=== PATIENT | female | born 1985 | race Caucasian/White ===

== ENCOUNTER 2023-03-25 12:33 | Outpatient (CLI) | payer OTHER, SELFPAY ==
--- NOTE | 2023-03-25 13:10 | NEURO_ITS ---
Impression: # Complains of numbness of right hand. # Right moderate Carpal Tunnel Syndrome. # Needle/EMG exam not requested. Nerve Conduction Studies Anti Sensory Summary Table Stim Site NR Peak (ms) P-T Amp (?V) Site1 Site2 Delta-P (ms) Dist (cm) Angel (m/s) Right Median Anti Sensory (2-3nd Digit) Wrist 5.1 47.6 Wrist 2-3nd Digit 5.1 14.0 27 Wrist 5.5 30.5 Wrist 2-3nd Digit 5.1 14.0 27 Right Radial Anti Sensory (Base 1st Digit) Wrist 1.7 70.3 Wrist Base 1st Digit 1.7 0.0 Right Ulnar Anti Sensory (5th Digit) Wrist 2.3 19.2 Wrist 5th Digit 2.3 14.0 61 Motor Summary Table Stim Site NR Onset (ms) O-P Amp (mV) Site1 Site2 Delta-0 (ms) Dist (cm) Angel (m/s) Right Median Motor (Abd Poll Brev) Wrist 4.9 2.1 Elbow Wrist 4.3 24.0 56 Elbow 9.2 2.0 Right Ulnar Motor (Abd Dig Minimi) Wrist 2.6 6.6 A Elbow Wrist 4.2 26.0 62 A Elbow 6.8 5.5 F Wave Studies NR F-Lat (ms) L-R F-Lat (ms) Right Median (Mrkrs) (Abd Poll Brev) 28.67 Right Ulnar (Mrkrs) (Abd Dig Min) 26.54 MTDD
== END 2023-03-25 12:34 | disposition home or self-care (01) ==
LOC: ANHNEURO 12:36
PROVIDERS: PCP Family Medicine Adolescent Medicine; Visit Provider Family Medicine Adolescent Medicine
DX: R20.0 Anesthesia of skin (principal); G56.01 Carpal tunnel syndrome, right upper limb
CPT/HCPCS: 95909

== ENCOUNTER 2023-04-24 08:59 | Outpatient (CLI) | payer OTHER, SELFPAY ==
--- NOTE | ~2023-04-24 | XR_ITS ---
EXAMINATION: XR hand RT min 3V DATE: 04/24/2023 09:18 INDICATION: Carpal tunnel syndrome, right upper limb. TECHNIQUE: 3 views of right hand were obtained. COMPARISON: None. FINDINGS: Bone alignment is normal. No fracture. Joint spaces are normal. IMPRESSION: 1. Normal right hand. Reviewed, dictated and finalized at location E. IMPRESSION: 1. Normal right hand.
== END 2023-04-24 09:00 | disposition home or self-care (01) ==
LOC: ANHIMG 09:04
PROVIDERS: PCP Family Medicine Adolescent Medicine; Visit Provider Physician Assistant Surgical
DX: G56.01 Carpal tunnel syndrome, right upper limb (principal)
CPT/HCPCS: 73130

== ENCOUNTER 2023-06-19 03:00 | Day surgery (SDC) | payer OTHER, SELFPAY ==
[2023-06-16 11:12] VITALS: BMI 46.3
--- NOTE | 2023-06-16 11:18 | PC.NURSE ---
Report to the Outpatient Waiting Room, entrance under the green pavilion located off [facility], at time 1130 on date 06/19/23. Planned Procedure Time: 1330. Time changes happen often and if your time is changed the preop area will call you the afternoon before. - You and your visitor will be asked to self-screen and do not enter if you have any COVID symptoms. - A mask is optional within the hospital at this time. Patients may have clear liquids (water, carbonated beverages, clear teas, apple juice) until 8 hours prior to surgery with a maximum of 20 ounces. - No food from midnight until time of surgery Take the following medications with a SIP of water the morning of surgery: LEVOTHYROXINE DO NOT STOP ANY OF YOUR OTHER PRESCRIPTION MEDICATIONS PRIOR TO SURGERY ?EXCEPT THE FOLLOWING Medications to discontinue per physician: VITAMINS Date to take last dose: NO MORE UNTIL AFTER SURGERY FOLLOW INSTRUCTIONS FROM DR. MANZANO REGARDING IBUPROFEN Please no make-up, nail korean, hairspray, perfume, deodorant, or body powder the day of surgery. No jewelry (including any body piercings) or valuables the day of surgery, leave them at home. Please take a shower or bath the night before, or the morning of, surgery with an antibacterial soap. Wear comfortable, loose fitting clothing. - Jewelry must be removed prior to entering the operating room. Rings and piercings that are not removed may be cut off. - The hospital will not accept responsibility for valuables. - Please leave all valuables, including medications, at home the day of surgery. If you are going home after surgery, a licensed auto [place]ulaway driver must drive you home. - NO public transportation without another adult if you receive anesthesia. - We recommend that an adult stay with you for 24 hours following discharge. - We also recommend that you do not drive, make important decision, drink alcoholic beverages, or take any drugs that were not prescribed by your health care provider for at least 24 hours after your discharge time. Follow any additional instructions given to you from your surgeon. If you or anyone in your household have experienced Covid symptoms in the past week, please notify your surgeon or the nurse liaison at the phone number below for possible testing. Telephone instructions given to PT - CLARENCE CHARLES and asked if any additional questions and then verbalized understanding. Patient advised to call surgeon office or pre surgery nurse liaison [phone] if any additional questions.
--- NOTE | 2023-06-19 07:00 | PM.HPGS ---
History of Present Illness History of Present Illness Chief complaint: right wrist carpal tunnel syndrome Narrative: Patient seen and examined in pre-operative holding area. No interval change in medical history or symptoms. Patient recalls previous discussion of benefits and alternatives to procedure. Continues to desire to proceed with right ectr poss open . Reviewed procedure, post-op expectations and risks including but not limited to bleeding, infection, injury to tendon/nerve/vessel, decreased hand function, stiffness, RSD, no change or worsening of symptoms. I discussed the possible use of assistants and their participation in the case. Patient stated understanding and signed the consent form wishing to proceed. Review of Systems Review of Systems: All systems reviewed & are unremarkable except as noted in HPI and below [facility] Surgical History Surgical History (Updated 02/03/23 @ 06:11 by Raciel Thomas MD) History of endometrial ablation Hx of dilation and curettage (2011) Family History Family History Grandparent Diabetes mellitus Hypertension Social History Social History (Updated 02/04/23 @ 13:06 by Scott Rao CMA) Years smoked: 10 Smoking status: Former smoker Tobacco type: cigarettes Second hand tobacco smoke exposure: No Smoking end date: 06/29/17 Alcohol intake: current Alcohol use details: RARE Substance use: never Substance use type: does not use Lack of Transportation: No Lack of Food: Never True Current Housing: I Have Housing Concerned About Future Housing: No Difficulty Paying Gas/Electric Bills: No Difficulty Paying for Meds: No Currently Unemployed: No Education: Trade/Vocational Certificate Difficulty w/ Childcare or Family Care: No Living arrangements: with family Occupation/Education: student Gender identity (if verbalized by the patient): Female Sexual Orientation (if Verbalized by the Patient): Straight or Heterosexual Spiritual care concerns: No Agree to blood products: Yes Meds Home Medications and Allergies Home Medications Medication Instructions Recorded Confirmed Type ascorbate calcium (vitamin C) 500 1,000 mg PO DAILY 02/03/22 06/16/23 History mg tablet acetaminophen 500 mg tablet 500 mg PO Q6H PRN Pain 02/04/23 06/16/23 History fluticasone propionate 50 2 spray intranasal DAILY PRN 02/04/23 06/16/23 History mcg/actuation nasal Allergy Symptoms spray,suspension ibuprofen 200 mg tablet 400 mg PO Q6H PRN Pain 02/04/23 06/16/23 History norethindrone (contraceptive) 0.35 0.35 mg PO DAILY 02/04/23 06/16/23 History mg tablet levothyroxine 125 mcg tablet 125 mcg PO DAILY #90 tabs 04/14/23 06/16/23 Rx Allergies Allergy/AdvReac Type Severity Reaction Status Date / Time CITALOPRAM HYDROBROMIDE Allergy Unknown Anaphylactic Uncoded 06/16/23 11:10 Shock Exam Narrative: unchanged Assessment and Plan Assessment and plan (1) Right carpal tunnel syndrome: Code(s): G56.01 - Carpal tunnel syndrome, right upper limb Status: Acute Assessment and Plan: as above
--- NOTE | 2023-06-19 07:01 | W.PM.PROC2 ---
Procedure Note - Detailed Date of Procedure 06/19/23 Pre-op Diagnosis right wrist carpal tunnel syndrome Post-op Diagnosis Same Procedure Performed right ectr Surgeon Morgan Deleon MD Anesthesia MAC Description of Procedure ENDOSCOPIC CARPAL TUNNEL RELEASE INFORMED CONSENT: The patient was seen and examined and marked in the pre-op area.? The patient signed the consent form. PROCEDURE IN DETAIL:The patient taken back to OR on the stretcher in supine position. Time out performed with anesthesia, surgeon and staff agreeing on patient's name site and surgery to be performed SCDs were placed on the lower extremities and inflated. A tourniquet was placed on {rightt} upper extremity and antibiotics given IV After anesthesia administered sedation I injected {4}cc 1%lido with epi and 0.5% marcaine plain at the operative site The?{right upper extremity}?was prepped and draped in sterile fashion the??{right upper extremity} was? exsanguinated with Esmarch bandage and tourniquet inflated to 250mmHg I made a transverse incision in the {right} volar distal wrist crease through skin and dermis with 15 blade scalpel.? Littler scissors spread down to antebrachial fascia. A small incision was made in antebrachial fascia allowing access to Carpal tunnel. I proceeded with sequential dilation staying in line with the ring finger and hugging the hook of the hamate.? I then used the synovial elevator to free any adhesions from the underside of the transverse carpal ligament. Next I was able to insert the Microaire endoscopic carpal tunnel device with direct visualization of the transverse fibers on the monitor and proceeded with complete segmental retrograde release of the ligament in its entirety.? I irrigated with normal saline and closed with 4-0 monocryl for dermis and subcuticular closure. A dressing of Dermabond, 4x4, yoko, and a volar splint was applied for patient safety, security, and comfort and secured with an toni bandage after the tourniquet was let down noting the hand was warm and well perfused. The patient was then awaken from anesthesia and transferred to the recovery room in stable condition.? Complications - none EBL- 0cc Disposition - home in stable conditions [facility] Billing Surgery - Charge Forward: Surgery Billing ([id number])
[2023-06-19 10:50] VITALS: BP 132/88; PULSE 91; RESP 16; TEMP 36.8; O2SAT 100
[2023-06-19] MEDS: LACTATED RINGERS 1,000 ML 30 ML IV CONT (11:07)
--- NOTE | 2023-06-19 11:08 | WPDANESEPPF ---
Anes - Initial Pre Proc Eval Procedure: Operation Date: 06/19/23 13:15 Proposed Procedures p Right Endoscopic Carpal Tunnel Release, Possible Open - Morgan Deleon MD Date/Time: 06/19/23 11:08 Surgeon: Morgan Deleon MD Pre Op Diagnosis: right wrist carpal tunnel syndrome Patient Data Age: 38 Gender: F Height: 1.55 m Weight: 111.1 kg Last Vital Signs Temp 36.8 C 06/19/23 10:50 Pulse 91 06/19/23 10:50 Resp 16 06/19/23 10:50 BP 132/88 06/19/23 10:50 Pulse Ox 100 06/19/23 10:50 O2 Del Method Room Air 06/19/23 10:50 Allergies Allergy/AdvReac Type Severity Reaction Status Date / Time CITALOPRAM HYDROBROMIDE Allergy Unknown Anaphylactic Uncoded 06/19/23 10:57 Shock Home Medications Medication Instructions Recorded Confirmed Type ascorbate calcium (vitamin C) 500 1,000 mg PO DAILY 02/03/22 06/16/23 History mg tablet acetaminophen 500 mg tablet 500 mg PO Q6H PRN Pain 02/04/23 06/16/23 History fluticasone propionate 50 2 spray intranasal DAILY PRN 02/04/23 06/16/23 History mcg/actuation nasal Allergy Symptoms spray,suspension ibuprofen 200 mg tablet 400 mg PO Q6H PRN Pain 02/04/23 06/16/23 History norethindrone (contraceptive) 0.35 0.35 mg PO DAILY 02/04/23 06/16/23 History mg tablet levothyroxine 125 mcg tablet 125 mcg PO DAILY #90 tabs 04/14/23 06/16/23 Rx tramadol 50 mg tablet 50 mg PO Q6H PRN pain #14 tabs 06/19/23 Rx Patient hx anesthesia problems: none Family hx anesthesia problems: none Results Review: All pre-operative results and documents have been reviewed as part of the pre-operative evaluation. [facility] Surgical History Surgical History History of endometrial ablation Hx of dilation and curettage (2011) Family History Family History Grandparent Diabetes mellitus Hypertension Social History Social History Years smoked: 10 Smoking status: Former smoker Tobacco type: cigarettes Second hand tobacco smoke exposure: No Smoking end date: 06/29/17 Alcohol intake: current Alcohol use details: RARE Substance use: never Substance use type: does not use Lack of Transportation: No Lack of Food: Never True Current Housing: I Have Housing Concerned About Future Housing: No Difficulty Paying Gas/Electric Bills: No Difficulty Paying for Meds: No Currently Unemployed: No Education: Trade/Vocational Certificate Difficulty w/ Childcare or Family Care: No Living arrangements: with family Occupation/Education: student Gender identity (if verbalized by the patient): Female Sexual Orientation (if Verbalized by the Patient): Straight or Heterosexual Spiritual care concerns: No Agree to blood products: Yes Anes - Eval Final PreProcedure Day of Procedure 06/19/23 11:08 Patient weight: morbidly obese Heart: regular rate and rhythm Lungs: decreased breath sounds Airway: Mallampati scale class III Neurological: alert and oriented Last oral intake: >/= 8 hours ASA classification: III Emergent: no Anesthetic plan: proceed Anesthesia type and monitoring: general GIVS and standard monitoring Results Review: All pre-operative results and documents have been reviewed as part of the pre-operative evaluation. Informed Consent: The patient's anesthetic plan and its attendant risks and benefits were discussed with the patient/family/POA. Questions were solicited and answers provided to the satisfaction of the patient/family/POA.
[2023-06-19] MEDS: ceFAZolin 2 GM/D5W 50 ML 2 GM/50 ML BAG IVPB (11:45)
[2023-06-19] MEDS: LIDO 1%/EPINEPHRINE 1:100,000 50 ML VIAL INFILTRATE (11:57)
[2023-06-19 12:08] VITALS: BP 140/80; PULSE 100; RESP 18; O2SAT 96
[2023-06-19 12:40] VITALS: BP 130/79; PULSE 94; RESP 16
[2023-06-19 13:10] VITALS: BP 134/78; PULSE 81; RESP 18
== END 2023-06-19 13:22 | disposition home or self-care (01) ==
PROVIDERS: PCP Family Medicine Adolescent Medicine; Visit Provider Plastic Surgery
PROC: 01N54ZZ Release Median Nerve, Percutaneous Endoscopic Approach (ICD-10-PCS; CPT 29848; principal; 2023-06-19 13:15)
DX: G56.01 Carpal tunnel syndrome, right upper limb (principal); Z87.891 Personal history of nicotine dependence; E66.01 Morbid (severe) obesity due to excess calories; Z68.42 Body mass index [BMI] 45.0-49.9, adult
CPT/HCPCS: 29848; J0690; J2250; J2704; J3010; J7120

== ENCOUNTER 2023-09-28 06:25 | Emergency (ER) | payer OTHER, SELFPAY ==
--- NOTE | ~2023-09-28 | CT_ITS ---
EXAMINATION: CT abdomen pelvis wo con DATE: 09/28/2023 07:44 INDICATION: Left low back pain radiating to the right. Nausea. TECHNIQUE: Computed tomography (CT) of the abdomen and pelvis was performed without intravenous contr ast. Automated exposure control and iterative reconstruction technique were employed. The dose-length product was 1489.91 mGy-cm. COMPARISON: CT abdomen and pelvis 03/19/2015 FINDINGS: The visualized portions of the lung bases are clear without pneumonia or pleural effusion. The heart size is normal. No pericardial effusion. There is diffuse hepatic steatosis. The gallbladde r, spleen, pancreas, adrenal glands, and kidneys are normal. There is no urolithiasis. There are no d ilated loops of bowel. The appendix is not visualized. There is a mildly enlarged gastrohepatic lymph node. There is no free intraperitoneal fluid. There is mild thoracic and lumbar spondylosis. IMPRESSION: 1. Diffuse hepatic steatosis. 2. Mildly enlarged gastrohepatic lymph node, likely reactive. Reviewed, dictated and finalized at location A.
[2023-09-28 06:47] VITALS: BP 138/75; PULSE 92; RESP 15; TEMP 37.2; O2SAT 100
[2023-09-28 07:15] LABS: Basophils Absolute Auto 0.1 K/mm3 (0.0-0.1); Basophils Percent Auto 0.6 % (0.2-1.2); Eosinophils Absolute Auto 0.2 K/mm3 (0-0.3); Eosinophils Percent Auto 2.4 % (0-4.4); Hematocrit 43.5 % (37.0-47.0); Hemoglobin 14.5 g/dL (12.0-15.0); Immature Granulocyte Absolute 0.04 K/mm3 (0.00-0.031); Immature Granulocyte Percent A 0.5 % (0-0.5); Lymphocytes Absolute Auto 2.69 K/mm3 (0.9-3.2); Mean Corpuscular HGB Conc 33.3 g/dl (32-36); Mean Corpuscular Hemoglobin 30.3 pg (26-34); Mean Platelet Volume 10.2 fl (7.4-10.4); Monocytes Absolute Auto 0.8 K/mm3 (0.1-0.6); Monocytes Percent Auto 9.6 % (2.6-8.5); Neutrophils Absolute Auto 4.6 K/mm3 (1.3-6.7); Neutrophils Percent Auto 54.9 % (45.5-73.1); Platelet Count Result 324 k/mm3 (150-375); Red Blood Count 4.78 M/mm3 (4.2-5.4); Red Cell Distribution Width 12.1 % (11.5-14.5); White Blood Count 8.4 K/mm3 (4.5-10.0)
[2023-09-28 07:26] LABS: Appearance Urine Clear (Clear); Bilirubin Urine Negative (Negative); Blood Urine Negative (Negative); Color Urine Yellow (Yellow); Glucose Urine UA Negative (Negative); Ketones Urine Negative (Negative); Leukocyte Esterase Ur Negative LEU/UL (Negative); Nitrate Urine Negative (Negative); Protein Urine Negative (Negative); Specific Grav Ur 1.007 (1.001-1.035); Urobilinogen Urine 0.2 mg/dL (<2.0); pH Urine 6.5 (5.0-9.0)
[2023-09-28 07:29] LABS: Add Urine Microscopic? NO; Alanine Aminotransferase 36 U/L (6-35); Albumin Level 4.5 g/dL (3.5-5.1); Alkaline Phosphatase 104 U/L (38-126); Anion Gap 7 mmol/L (4-12); Aspartate Amino Transferase 31 U/L (14-36); Bilirubin,Total 0.8 mg/dL (0.2-1.3); Blood Urea Nitrogen 11 mg/dL (7-17); Calcium 9.6 mg/dL (8.4-10.2); Carbon Dioxide 27 mmol/L (22-30); Chloride 105 mmol/L (98-107); Estimated CRCL calculation 124 ml/min; Estimated Glomerular Filt Rate > 60; Glucose 103 mg/dL (65-110); Lipase 45 U/L (23-300); Potassium 3.6 mmol/L (3.4-5.0); Sodium 139 mmol/L (137-145)
--- NOTE | 2023-09-28 08:31 | ED.BACK ---
HPI - Back Pain/Injury General Chief Complaint: Back Pain/Injury Stated Complaint: lower back pain Time Seen by Provider: 09/28/23 06:55 Source: patient Mode of arrival: ambulatory Limitations: no limitations History of Present Illness HPI Narrative: 38-year-old with a history of hypothyroidism, morbid obesity here with complaints of left lower back pain radiating into lower abdomen and into her back of her thigh since last night. Patient denies any trauma however she states that she was lifting a crock pot in today all of sudden she started having pain. She denies any urinary symptoms no bladder or bowel incontinence. Patient states that only time she is comfortable with plan she is standing. MD elicited complaint: back pain Onset (ago): day(s) (1) Severity: moderate Similar Symptoms Previously: Yes Quality: aching Location: lumbar spine Radiation: abdomen and buttocks Exacerbating factors: none Relieving factors: sitting upright Context: while lifting Associated symptoms: denies other symptoms Related Data Home Medications Medication Instructions Recorded Confirmed ascorbate calcium (vitamin C) 500 1,000 mg PO DAILY 02/03/22 09/07/23 mg tablet acetaminophen 500 mg tablet 500 mg PO Q6H PRN Pain 02/04/23 09/07/23 fluticasone propionate 50 2 spray intranasal DAILY PRN 02/04/23 09/07/23 mcg/actuation nasal Allergy Symptoms spray,suspension ibuprofen 200 mg tablet 400 mg PO Q6H PRN Pain 02/04/23 09/07/23 norethindrone (contraceptive) 0.35 0.35 mg PO DAILY 02/04/23 09/07/23 mg tablet Allergies Allergy/AdvReac Type Severity Reaction Status Date / Time citalopram Allergy Anaphylactic Verified 09/28/23 07:19 Shock Review of Systems Review of Systems: All systems reviewed & are unremarkable except as noted in HPI and below Constitutional: Constitutional: Reports no additional constitutional complaints Eyes: Eyes: Reports no additional eye complaints ENT: Reports system reviewed and no additional complaints, except as documented Cardiovascular: Cardiovascular: Reports no additional cardiovascular complaints Respiratory: Respiratory: Reports no additional respiratory complaints Gastrointestinal: Gastrointestinal: Reports as per HPI Genitourinary: Genitourinary: Reports no additional female genitourinary complaints Musculoskeletal: Musculoskeletal: Reports as per HPI Neurologic: Reports system reviewed and no additional complaints, except as documented [facility] Surgical History Surgical History (Updated 06/19/23 @ 12:13 by Raciel Thomas MD) History of carpal tunnel release (05/2023) Right History of endometrial ablation Hx of dilation and curettage (2011) Family History Family History Grandparent Diabetes mellitus Hypertension Social History Social History Years smoked: 10 Smoking status: Former smoker Tobacco type: cigarettes Second hand tobacco smoke exposure: No Smoking end date: 06/29/17 Alcohol intake: current Alcohol use details: RARE Substance use: never Substance use type: does not use Do You Feel Safe in your Home?: Yes Lack of Transportation: No Lack of Food: Never True Current Housing: I Have Housing Concerned About Future Housing: No Difficulty Paying Gas/Electric Bills: No Difficulty Paying for Meds: No Currently Unemployed: No Education: Trade/Vocational Certificate Difficulty w/ Childcare or Family Care: No Living arrangements: with family Occupation/Education: student Gender identity (if verbalized by the patient): Female Sexual Orientation (if Verbalized by the Patient): Straight or Heterosexual Spiritual care concerns: No Agree to blood products: Yes Exam Narrative: GENERAL: Well-appearing, morbidly obese and in no acute distress. HEAD: Normocephalic, atraumatic. EYES: PERRLA and EOMI. ENT:
[2023-09-28] MEDS: KETOROLAC 15 MG/ML VIAL (*BKC) IV PUSH (08:33)
[2023-09-28 08:38] VITALS: BP 140/100; PULSE 82; RESP 18; O2SAT 97
[2023-09-28 09:15] VITALS: BP 141/92; PULSE 90; RESP 16; O2SAT 98
== END 2023-09-28 09:17 | disposition home or self-care (01) ==
PROVIDERS: Emergency Provider Family Medicine; PCP Family Medicine Adolescent Medicine
DX: M54.50 Low back pain, unspecified (principal); E03.9 Hypothyroidism, unspecified; E66.01 Morbid (severe) obesity due to excess calories; Z68.42 Body mass index [BMI] 45.0-49.9, adult; Z87.891 Personal history of nicotine dependence; K76.0 Fatty (change of) liver, not elsewhere classified
CPT/HCPCS: 36415; 74176; 80053; 81003; 81025; 83690; 85025; 96374; 99284; J1885